=== PATIENT | male | born 2000 | race Caucasian/White ===

== ENCOUNTER 2022-01-30 21:23 | Emergency (ER) | payer BC ==
[~2022-01-30] VITALS: Ht 175.3 cm; Wt 116.4 kg
[2022-01-30 21:50] VITALS: BP 131/85
== END 2022-01-30 22:40 | disposition home or self-care (01) ==
LOC: ED 21:23
DX: S93.401A Sprain of unspecified ligament of right ankle, initial encounter (principal); Z28.311 Partially vaccinated for COVID-19; X50.1XXA Overexertion from prolonged static or awkward postures, initial encounter